=== PATIENT | female | born 1940 | race Two or more races ===

== ENCOUNTER 2017-10-19 08:08 | Emergency (ER) | payer OTHER ==
[~2017-10-19] VITALS: Ht 160 cm; Wt 82.6 kg
[~2017-10-19 08:08] MED LIST: CIPRO500 MG PO; ZANTAC300 MG PO; ZOFRAN4 MG PO
[2017-10-19] MEDS ORDERED: METFORMIN HCL500 MG (08:35)
[2017-10-19] MEDS ORDERED: LIPITOR40 MG (08:35)
[2017-10-19] MEDS ORDERED: BRILINTA60 MG (08:36)
[2017-10-19] MEDS ORDERED: XANAX0.25 MG PO (22:52)
[2017-10-19] MEDS ORDERED: ISOSORBIDE MONO30 MG PO (22:52)
== END 2017-10-19 23:12 | disposition home or self-care (01) ==
LOC: ER 08:08 → CPU-OBS 08:29 → ER 08:29
DX: R07.89 Other chest pain (principal); R06.02 Shortness of breath; F41.8 Other specified anxiety disorders; I10 Essential (primary) hypertension; E11.9 Type 2 diabetes mellitus without complications

== ENCOUNTER → 2018-02-12 | Outpatient (CLI) | payer OTHER ==
[~2018-02-12] MED LIST changes: +BRILINTA60 MG; +ISOSORBIDE MONO30 MG PO; +LIPITOR40 MG; +METFORMIN HCL500 MG; +XANAX0.25 MG PO
== END | disposition home or self-care (01) ==
LOC: RAD 13:02
DX: Z12.31 Encounter for screening mammogram for malignant neoplasm of breast (principal); Z87.898 Personal history of other specified conditions; M19.041 Primary osteoarthritis, right hand; M19.042 Primary osteoarthritis, left hand

== ENCOUNTER 2018-02-15 14:05 | Outpatient (CLI) | payer OTHER | END 2018-02-15 14:41 | disposition home or self-care (01) | LOC: NUCLEAR 14:05 | DX: M81.0 Age-related osteoporosis without current pathological fracture (principal) ==

== ENCOUNTER 2018-03-29 11:09 | Outpatient (CLI) | payer OTHER | END 2018-03-29 11:13 | disposition home or self-care (01) | LOC: RAD 11:09 | DX: I11.9 Hypertensive heart disease without heart failure (principal); R06.02 Shortness of breath; I25.10 Atherosclerotic heart disease of native coronary artery without angina pectoris; E03.8 Other specified hypothyroidism; E78.2 Mixed hyperlipidemia; Z95.5 Presence of coronary angioplasty implant and graft; E11.8 Type 2 diabetes mellitus with unspecified complications ==

== ENCOUNTER 2018-03-30 10:41 | Emergency (ER) | payer OTHER ==
[~2018-03-30] VITALS: Ht 160 cm; Wt 79.8 kg
== END 2018-03-30 17:03 | disposition home or self-care (01) ==
LOC: ER 10:41
DX: R06.02 Shortness of breath (principal)

== ENCOUNTER → 2018-08-07 | Outpatient (CLI) | payer OTHER | END | disposition home or self-care (01) | LOC: NUCLEAR 07:00 | DX: I11.9 Hypertensive heart disease without heart failure (principal); R06.02 Shortness of breath; I25.119 Atherosclerotic heart disease of native coronary artery with unspecified angina pectoris; E03.9 Hypothyroidism, unspecified; E78.2 Mixed hyperlipidemia | CPT/HCPCS: 78452; 93017; A9500; J0153 ==

== ENCOUNTER → 2019-02-03 | Outpatient (CLI) | payer OTHER | END | disposition home or self-care (01) | LOC: RAD 10:26 | DX: J43.2 Centrilobular emphysema (principal); R06.02 Shortness of breath ==

== ENCOUNTER → 2019-02-17 | Outpatient (CLI) | payer OTHER | END | disposition home or self-care (01) | LOC: MAMO-SONO 02-14 10:15 | DX: Z12.31 Encounter for screening mammogram for malignant neoplasm of breast (principal); Z87.898 Personal history of other specified conditions; Z09 Encounter for follow-up examination after completed treatment for conditions other than malignant neoplasm ==

== ENCOUNTER 2019-03-07 08:34 | Emergency (ER) | payer OTHER ==
[~2019-03-07] VITALS: Ht 160 cm; Wt 79.8 kg
[2019-03-07] MEDS ORDERED: CARVEDILOL25 MG (08:51)
[2019-03-07] MEDS ORDERED: ATORVASTATIN CA40 MG (08:52)
[2019-03-07] MEDS ORDERED: CLOPIDOGREL BIS75 MG (08:52)
[2019-03-07] MEDS ORDERED: ASA81 MG (08:52)
== END 2019-03-07 18:05 | disposition home or self-care (01) ==
LOC: ER 08:34
DX: J22 Unspecified acute lower respiratory infection (principal)

== ENCOUNTER 2020-02-24 11:47 | Outpatient (CLI) | payer OTHER ==
[~2020-02-24 11:47] MED LIST changes: +ASA81 MG; +ATORVASTATIN CA40 MG; +CARVEDILOL25 MG; +CLOPIDOGREL BIS75 MG
== END 2020-02-24 11:58 | disposition home or self-care (01) ==
LOC: MAMO-SONO 11:47
PROVIDERS: ATTEND Specialist
DX: Z12.31 Encounter for screening mammogram for malignant neoplasm of breast (principal)

== ENCOUNTER 2020-11-18 09:07 | Emergency (ER) | payer OTHER ==
[~2020-11-18] VITALS: Ht 160 cm; Wt 81.2 kg
[2020-11-18] MEDS ORDERED: LIPITOR40 M1 PO (09:19)
[2020-11-18] MEDS ORDERED: COZAAR100 MG PO (09:19)
[2020-11-18] MEDS ORDERED: LASIX20 MG PO (09:19)
[2020-11-18] MEDS ORDERED: FORTAMET500 MG PO (09:19)
[2020-11-18] MEDS ORDERED: CHILDREN'S ASPI81 MG PO (09:20)
[2020-11-18] MEDS ORDERED: CARVEDILOL ER40 MG PO (09:20)
== END 2020-11-18 14:21 | disposition home or self-care (01) ==
LOC: ER 09:07
DX: J45.998 Other asthma (principal); I11.0 Hypertensive heart disease with heart failure; I50.9 Heart failure, unspecified; Z03.818 Encounter for observation for suspected exposure to other biological agents ruled out

== ENCOUNTER 2021-03-09 10:51 | Outpatient (CLI) | payer OTHER ==
[~2021-03-09 10:51] MED LIST changes: +CARVEDILOL ER40 MG PO; +CHILDREN'S ASPI81 MG PO; +COZAAR100 MG PO; +FORTAMET500 MG PO; +LASIX20 MG PO; +LIPITOR40 M1 PO
== END 2021-03-09 11:04 | disposition home or self-care (01) ==
LOC: MAMO-SONO 10:51
PROVIDERS: ATTEND Specialist
DX: R92.1 Mammographic calcification found on diagnostic imaging of breast (principal); Z12.31 Encounter for screening mammogram for malignant neoplasm of breast

== ENCOUNTER 2022-03-22 12:23 | Outpatient (CLI) | payer OTHER | END 2022-03-22 12:33 | disposition home or self-care (01) | LOC: MAMO-SONO 12:23 | PROVIDERS: ATTEND Specialist | DX: Z12.31 Encounter for screening mammogram for malignant neoplasm of breast (principal); N63.0 Unspecified lump in unspecified breast ==

== ENCOUNTER 2022-08-02 11:28 | Outpatient (CLI) | payer OTHER | END 2022-08-02 11:37 | disposition home or self-care (01) | LOC: TOM 11:28 | DX: H90.A12 Conductive hearing loss, unilateral, left ear with restricted hearing on the contralateral side (principal) ==

== ENCOUNTER → 2023-03-09 | Outpatient (CLI) | payer OTHER | END | disposition home or self-care (01) | LOC: NUCLEAR 12:43 | PROVIDERS: ATTEND Specialist | DX: M85.80 Other specified disorders of bone density and structure, unspecified site (principal) ==

== ENCOUNTER 2023-03-26 09:57 | Outpatient (CLI) | payer OTHER | END 2023-03-26 10:07 | disposition home or self-care (01) | LOC: MAMO-SONO 09:57 | PROVIDERS: ATTEND Specialist | DX: Z12.31 Encounter for screening mammogram for malignant neoplasm of breast (principal); N63.0 Unspecified lump in unspecified breast ==

== ENCOUNTER 2023-06-20 14:19 | Outpatient (CLI) | payer OTHER | END 2023-06-20 14:21 | disposition home or self-care (01) | LOC: RAD 14:19 | PROVIDERS: ATTEND Internal Medicine Pulmonary Disease | DX: J44.1 Chronic obstructive pulmonary disease with (acute) exacerbation (principal); J45.31 Mild persistent asthma with (acute) exacerbation; Z87.891 Personal history of nicotine dependence ==

== ENCOUNTER 2024-03-31 09:53 | Outpatient (CLI) | payer OTHER ==
[~2024-03-31 09:53] MED LIST changes: +ADULT ASPIRIN81 MG PO; +BREO ELLIPTA 21 EACH IH; +BUDESONIDE0.5 MG/2 M IH; +CARVEDILOL25 MG PO; +CLOPIDOGREL BIS75 MG PO; +EZETIMIBE10 MG PO; +GLUMETZA1000 MG PO; +IPRATROPIU0.2 MG/1 M IH; +LEVOFLOXACIN500 MG PO; +LOSARTAN POTAS100 MG PO; +MONTELUKAST SOD10 MG PO; +OMEPRAZOLE-BIC1 EACH PO; +PAIN RELIEVER500 M2 PO
== END 2024-03-31 09:57 | disposition home or self-care (01) ==
LOC: MAMO-SONO 09:53
PROVIDERS: ATTEND Specialist
DX: Z12.31 Encounter for screening mammogram for malignant neoplasm of breast (principal); N63.0 Unspecified lump in unspecified breast

== ENCOUNTER 2024-10-07 10:20 | Outpatient (CLI) | payer OTHER | END 2024-10-07 10:28 | disposition home or self-care (01) | LOC: MAMO-SONO 10:20 | PROVIDERS: ATTEND Specialist | DX: N63.0 Unspecified lump in unspecified breast (principal) ==